=== PATIENT | female | born 1985 | race Caucasian/White ===

== ENCOUNTER 2016-04-25 20:57 | Emergency (ER) | payer SELFPAY ==
[~2016-04-25 20:57] MED LIST: BYSTOLIC2.5 MG PO; GOOD NEIGHBOR200 M1 PO; KLONOPIN 0.5MG0.5 MG PO; NORCO 325 MG-51 TAB PO; WELLBUTRIN SR150 MG PO
[2016-04-25] MEDS ORDERED: AUGMENTIN 875-1 EAC1 PO (21:12)
[2016-04-25] MEDS ORDERED: CLEOCIN HCL300 MG PO (21:17)
== END 2016-04-25 21:37 | disposition home or self-care (01) ==
LOC: ED 20:57
DX: K08.89 Other specified disorders of teeth and supporting structures (principal); F17.210 Nicotine dependence, cigarettes, uncomplicated; F12.10 Cannabis abuse, uncomplicated
CPT/HCPCS: J1885

== ENCOUNTER 2018-10-26 21:17 | Emergency (ER) | payer SELFPAY ==
[~2018-10-26 21:17] MED LIST changes: +AUGMENTIN 875-1 EAC1 PO; +CLEOCIN HCL300 MG PO
[2018-10-26] MEDS ORDERED: CLEOCIN HCL300 MG PO (22:35)
[2018-10-26 22:43] VITALS: BP 128/82
== END 2018-10-26 22:44 | disposition home or self-care (01) ==
LOC: ED 21:17
DX: G43.909 Migraine, unspecified, not intractable, without status migrainosus (principal); K02.9 Dental caries, unspecified; F32.9 Major depressive disorder, single episode, unspecified; F41.9 Anxiety disorder, unspecified; F25.9 Schizoaffective disorder, unspecified; F17.210 Nicotine dependence, cigarettes, uncomplicated; F12.90 Cannabis use, unspecified, uncomplicated; F43.10 Post-traumatic stress disorder, unspecified; Z98.51 Tubal ligation status; Z98.890 Other specified postprocedural states; Z88.2 Allergy status to sulfonamides; Z88.8 Allergy status to other drugs, medicaments and biological substances
CPT/HCPCS: J1885; J2550

== ENCOUNTER 2019-05-17 19:46 | Emergency (ER) | payer SELFPAY ==
[2019-05-17] MEDS ORDERED: KETOROLAC10 MG PO (20:42)
[2019-05-17 20:52] VITALS: BP 131/87
== END 2019-05-17 20:55 | disposition home or self-care (01) ==
LOC: ED 19:46
DX: M26.601 Right temporomandibular joint disorder, unspecified (principal)
CPT/HCPCS: J1885